=== PATIENT | female | born 1985 | race Caucasian/White ===

== ENCOUNTER 2025-07-24 09:17 | Outpatient (AMB) | payer MEDICAID, SELFPAY ==
[2025-07-24 09:44] VITALS: BP 139/87; PULSE 80; RESP 16; TEMP 36.2; O2SAT 98; BMI 49.8
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
== END 2025-07-24 10:32 | disposition home or self-care (01) ==
LOC: HODSOBC 09:17
PROVIDERS: Supervising Provider Advanced Practice Midwife; Visit Provider Advanced Practice Midwife
DX: O09.892 Supervision of other high risk pregnancies, second trimester (principal); O99.212 Obesity complicating pregnancy, second trimester; O24.112 Pre-existing type 2 diabetes mellitus, in pregnancy, second trimester; O09.522 Supervision of elderly multigravida, second trimester; Z3A.15 15 weeks gestation of pregnancy; E66.01 Morbid (severe) obesity due to excess calories; Z14.1 Cystic fibrosis carrier; Z87.59 Personal history of other complications of pregnancy, childbirth and the puerperium; Z87.891 Personal history of nicotine dependence
CPT/HCPCS: 99204; G0463